=== PATIENT | male | born 1990 | race African-American/Black ===

== ENCOUNTER 2025-01-06 12:40 | Emergency (ER) | payer MEDICAID ==
[~2025-01-06] VITALS: Ht 182.9 cm; Wt 73.0 kg
[2025-01-06] MEDS: DEXAMETHASONE 10 MG/ML VIAL IV ONE (13:01)
[2025-01-06] MEDS: IPRATROPIUM BROMIDE (0.02%) 0.5MG/2.5ML NEB HHN SCH (13:04)
[2025-01-06] MEDS: ALBUTEROL (0.083%) 2.5MG/3ML NEB HHN SCH (13:04)
[2025-01-06 13:08] VITALS: PULSE 86; RESP 13; O2SAT 100
[2025-01-06 13:18] LABS: BASOPHILS % 1.5 % (0.0-2.0); EOSINOPHILS % 1.1 % (0.0-5.0); HEMATOCRIT. 46.0 % (42.0-52.0); HEMOGLOBIN. 15.9 g/dL (14.0-18.0); LYMPHOCYTES % 51.9 % (20.0-50.0); MEAN PLATELET VOLUME 7.4 fl (7.4-10.4); MONOCYTES % 13.0 % (2.0-8.0); NEUTROPHILS % 32.5 % (40.0-76.0); PLATELET 246 x1000/uL (130-400); RED BLOOD CELL COUNT 4.87 mill/uL (4.7-6.1); RED CELL DISTRIBUTION WIDTH 13.3 % (11.6-14.6)
[2025-01-06 13:31] LABS: BG BASE EXCESS 0.2 mmol/L (-2.0-3.0); BG CARBOXYHEMOGLOBIN 0.9 % (0.5-1.5); BG DEOXYHEMOGLOBIN 0.9 % (0.0-5.0); BG FLOW(L/min) 8.00 L/min; BG FRACTION INSPIRED OXYGEN 60; BG HCO3 ACT 16.0 mmol/L (21.0-28.0); BG METHEMOGLOBIN 0.1 % (0.5-1.5); BG OXYGEN SATURATION 99.1 % (94.0-98.0); BG OXYHEMOGLOBIN 98.1 % (94.0-98.0); BG PCO2 13.3 mmHg (35.0-48.0); BG PH 7.698 (7.350-7.450); BG PO2 141.3 mmHg (83.0-108.0); BG SAMPLE SITE RIGHT RADIAL; BG TOTAL HEMOGLOBIN 15.8 g/dL (13.5-17.5); BG VENT MODE HHN MASK TX
[2025-01-06 13:50] LABS: CREATININE 1.2 mg/dL (0.6-1.3); UREA NITROGEN BLOOD 10 mg/dL (9-23)
[2025-01-06 13:51] LABS: TROPONIN I HIGH SENSITIVITY < 4 ng/L (3.0-53)
[2025-01-06 13:59] VITALS: PULSE 85; RESP 20; O2SAT 100
[2025-01-06 14:20] VITALS: PULSE 88; RESP 18; O2SAT 100
[2025-01-06 15:10] LABS: BG BASE EXCESS -1.2 mmol/L (-2.0-3.0); BG CARBOXYHEMOGLOBIN 1.0 % (0.5-1.5); BG DEOXYHEMOGLOBIN 1.8 % (0.0-5.0); BG FRACTION INSPIRED OXYGEN 21; BG HCO3 ACT 21.2 mmol/L (21.0-28.0); BG METHEMOGLOBIN 0.1 % (0.5-1.5); BG OXYGEN SATURATION 98.2 % (94.0-98.0); BG OXYHEMOGLOBIN 97.1 % (94.0-98.0); BG PCO2 30.0 mmHg (35.0-48.0); BG PH 7.468 (7.350-7.450); BG PO2 100.7 mmHg (83.0-108.0); BG SAMPLE SITE RIGHT BRACHIAL; BG TOTAL HEMOGLOBIN 15.6 g/dL (13.5-17.5); BG VENT MODE ROOM AIR
[2025-01-06 15:48] VITALS: BP 121/84; PULSE 75; RESP 18; TEMP 36.7; O2SAT 100
== END 2025-01-06 15:49 | disposition home or self-care (01) ==
LOC: ER 12:40
DX: J45.901 Unspecified asthma with (acute) exacerbation (principal); F41.0 Panic disorder [episodic paroxysmal anxiety]; I10 Essential (primary) hypertension
CPT/HCPCS: 80048; 80320; 85025; 85379; 84484; 36415; 71045; 94640; 82805; 82375; 93005; 96374; 99285; 36600; J1100; Z7610 ×3; 94070; 94664; 98960; G0480